=== PATIENT | male | born 1950 ===

== ENCOUNTER 2020-10-14 16:15 | Outpatient (NON) | payer MEDICARE, SELFPAY ==
[2020-10-14 17:45] LABS: INR 2.8; Prothrombin Time 28.4 Seconds (9.50-12.10)
== END 2020-10-14 16:16 | disposition home or self-care (01) ==
LOC: CHSLAB 16:20
PROVIDERS: Visit Provider Internal Medicine Infectious Disease
DX: I48.0 Paroxysmal atrial fibrillation (principal)
CPT/HCPCS: 85610